=== PATIENT | male | born 1955 | race Caucasian/White ===

== ENCOUNTER 2017-12-11 21:49 | Observation (INO) | payer OTHER ==
[2017-12-11 22:23] LABS: Basophils % (A) 0 %; Eosinophils # (A) 0.2 k/uL (0-0.7); Eosinophils % (A) 1 %; HCT 46.1 % (39.0-53.0); HGB 15.3 gm/dL (13.0-17.5); Lymphocytes # (A) 2.5 k/uL (1.0-4.8); Lymphocytes % (A) 23 %; MCH 30.1 pg (25.0-35.0); MCHC 33.3 g/dL (31.0-37.0); MCV 90.3 fL (80.0-100.0); Mean Platelet Volume 7.2; Monocytes # (A) 1.2 k/uL (0-1.0); Monocytes % (A) 11 %; Neutrophils # (A) 6.7 k/uL (1.3-7.7); Neutrophils % (A) 63 %; Platelet Count 243 k/uL (150-450); RDW 13.1 % (11.5-15.5); WBC 10.7 k/uL (3.8-10.6)
--- NOTE | 2017-12-11 22:27 | XR ---
EXAMINATION TYPE: XR chest 2V DATE OF EXAM: 12/11/2017 COMPARISON: NONE HISTORY: Chest pain TECHNIQUE: Frontal and lateral views of the chest are obtained. FINDINGS: There is some linear density at the lung bases. There is no heart failure. Heart size is n ormal. There are chest leads. There is poor inspiration. Bony thorax is intact. IMPRESSION: Mild atelectasis at the lung bases. No heart failure.
[2017-12-11 22:34] LABS: ALT 43 U/L (21-72); AST 28 U/L (17-59); Albumin 4.2 g/dL (3.5-5.0); Alkaline Phosphatase 88 U/L (38-126); Anion Gap 12 mmol/L; Blood Urea Nitrogen 21 mg/dL (9-20); Calcium 9.8 mg/dL (8.4-10.2); Carbon Dioxide 23 mmol/L (22-30); Chloride 103 mmol/L (98-107); Glucose 154 mg/dL (74-99); Magnesium 1.8 mg/dL (1.6-2.3); Potassium 4.3 mmol/L (3.5-5.1); Sodium 138 mmol/L (137-145); Total Bilirubin 0.5 mg/dL (0.2-1.3); Total Protein 7.2 g/dL (6.3-8.2)
[2017-12-11 22:47] LABS: Creatine Kinase 118 U/L (55-170)
[2017-12-11 22:59] LABS: Creatine Kinase MB 0.2 ng/mL (0.0-2.4); Troponin I <0.012 ng/mL (0.000-0.034)
[2017-12-11] MEDS ORDERED: ASPIRIN 81 MG PO STA (23:05)
[2017-12-11 23:28] LABS: D-Dimer 0.2 mg/L FEU (<0.60); Partial Thromboplastin Time 24.1 sec (22.0-30.0); Prothrombin Time 9.6 sec (9.0-12.0)
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
[2017-12-12] MEDS ORDERED: NITROGLYCERIN OINT 1 INCH/GM PACKET TOPICAL STA (00:37)
[2017-12-12] MEDS ORDERED: NITROGLYCERIN SL TABS 0.4 MG TAB SUBLINGUAL PRN (00:40)
[2017-12-12] MEDS ORDERED: HEPARIN SODIUM,PORCINE 5,000 UNIT/ML 1 ML VIAL IV ONE (00:40)
[2017-12-12] MEDS ORDERED: ACETAMINOPHEN TAB 500 MG TAB PO PRN (00:42)
[2017-12-12] MEDS ORDERED: HEPARIN SOD,PORK IN 0.45% NACL 25,000 UNIT in 0.45% NACL 1 500ML.BAG IV SCH (00:45)
[2017-12-12] MEDS ORDERED: SODIUM CHLORIDE 0.9% 1,000 ML IV SCH (00:45)
[2017-12-12 04:24] LABS: Creatine Kinase 90 U/L (55-170)
[2017-12-12 04:36] LABS: Creatine Kinase MB <0.2 ng/mL (0.0-2.4); Troponin I <0.012 ng/mL (0.000-0.034)
[2017-12-12] MEDS: NITROGLYCERIN OINT 1 INCH/GM PACKET TOPICAL SCH ×3 (09:02→19:59)
[2017-12-12] MEDS: LISINOPRIL 20 MG TAB PO SCH ×2 (09:02→09:06)
[2017-12-12] MEDS: MULTIVITAMINS, THERA 1 EACH TAB PO SCH ×2 (09:03→09:05)
[2017-12-12] MEDS: PANTOPRAZOLE 40 MG TABLET PO SCH (09:03)
[2017-12-12 09:59] LABS: Creatine Kinase 84 U/L (55-170)
[2017-12-12 10:10] LABS: Creatine Kinase MB <0.2 ng/mL (0.0-2.4); Troponin I <0.012 ng/mL (0.000-0.034)
[2017-12-12] MEDS: HEPARIN SODIUM,PORCINE 5,000 UNIT/ML 1 ML VIAL IV PRN ×2 (11:05→17:45)
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
[2017-12-12] MEDS ORDERED: HEPARIN SODIUM,PORCINE 5,000 UNIT/ML 1 ML VIAL IV PRN (23:43)
[2017-12-13] MEDS: NITROGLYCERIN OINT 1 INCH/GM PACKET TOPICAL SCH ×3 (01:13→11:55)
[2017-12-13] MEDS ORDERED: AMINOPHYLLINE 500 MG/20 ML VIAL IV PRN (06:00)
[2017-12-13] MEDS ORDERED: REGADENOSON 0.4 MG/5 ML SYRINGE IV ONE (06:00)
[2017-12-13 06:26] VITALS: RESP 18
--- NOTE | 2017-12-13 08:47 | ECHOF ---
Referral Reason:Chest pain and cardiomyopathy MEASUREMENTS -------- HEIGHT: 170.2 cm WEIGHT: 94.8 kg BP: IVSd: 1.4 cm (0.6 - 1.1) LVIDd: 3.8 cm (3.9 - 5.3) LVPWd: 1.2 cm (0.6 - 1.1) IVSs: 1.9 cm LVIDs: 1.9 cm LVPWs: 1.6 cm Ao Diam: 3.4 cm (2.0 - 3.7) AV Cusp: 2.5 cm (1.5 - 2.6) LA Diam: 3.7 cm (2.7 - 3.8) MV EXCURSION: 14.924 mm (> 18.000) MV EF SLOPE: 164 mm/s (70 - 150) EPSS: 0.4 cm MV E Kolby: 0.76 m/s MV DecT: 205 ms MV A Kolby: 0.57 m/s MV E/A Ratio: 1.33 FINDINGS -------- Sinus rhythm. This was a technically good study. The left ventricular size is normal. There is mild concentric left ventricular hypertrophy. Overa ll left ventricular systolic function is normal with, an EF between 55 - 60 %. The right ventricle is normal in size and function. The left atrium is normal in size. The right atrium is normal in size. Aortic valve is trileaflet and is mildly thickened. The mitral valve leaflets are mildly thickened. There is trace mitral regurgitation. Trace tricuspid regurgitation present. The right ventricular systolic pressure, as measured by Dopp ler, is {RVSP}. Pulmonic valve appears structurally normal. The aortic root size is normal. The pericardium is normal. CONCLUSIONS -------- 1. Sinus rhythm. 2. This was a technically good study. 3. The left ventricular size is normal. 4. There is mild concentric left ventricular hypertrophy. 5. Overall left ventricular systolic function is normal with, an EF between 55 - 60 %. 6. The right ventricle is normal in size and function. 7. The left atrium is normal in size. 8. The right atrium is normal in size. 9. Aortic valve is trileaflet and is mildly thickened. 10. The mitral valve leaflets are mildly thickened. 11. There is trace mitral regurgitation. 12. Trace tricuspid regurgitation present. 13. The right ventricular systolic pressure, as measured by Doppler, is {RVSP}. 14. Pulmonic valve appears structurally normal. 15. The aortic root size is normal. 16. The pericardium is normal. ORDER SCHEDULE CLERK: Es Ro RDCS
[2017-12-13] MEDS ORDERED: ASPIRIN 325 MG TAB PO SCH ×2 (09:00→10:30)
[2017-12-13 09:21] LABS: Cholesterol 159 mg/dL (<200); HDL Cholesterol 42 mg/dL (40-60); LDL Cholesterol,Calculated 97 mg/dL (0-99); Triglycerides 102 mg/dL (<150)
[2017-12-13] MEDS: MULTIVITAMINS, THERA 1 EACH TAB PO SCH (10:29)
[2017-12-13] MEDS ORDERED: LISINOPRIL 20 MG TAB PO SCH (10:30)
--- NOTE | 2017-12-13 10:53 | P.STRESS ---
- Stress Test Note Stress Test Results/Findings: Exam Performed: NM stress lexiscan cardiolite Exam Date: 12/13/17 Reason for Exam: CHEST PAIN Height: 5 ft 7 in Weight: 94.801 kg Protocol: MARYLOU Stage: NA Duration of Exercise: NA Resting Heart Rate: 65 Resting Blood Pressure: 119/70 Maximum Achieved Heart Rate: 88 Maximum Achieved Blood Pressure: 119/70 85% PMHR: 133 100% PMHR: 156 METS: NA Technologist Comment: Stress Test Results/Findings: This is a 62-year-old gentleman was admitted to the hospital with chest pain and shortness of breath. Patient has history of hypertension and also some tobacco abuse.. Baseline EKG showed sinus rhythm with normal MN interval and QRS duration. Blood pressure at rest is 119/70. Pulse rate of 65. A standard dose of Lexiscan was infused. EKGs taken during and after the infusion did not reveal any changes to suggest ischemia. Final impression: #1. Negative Lexiscan stress test #2. Report on the nuclear images to be given by the radiologist
[2017-12-13 12:02] VITALS: BP 134/80; PULSE 72; TEMP 97.4
[2017-12-13] MEDS: PANTOPRAZOLE 40 MG TABLET PO SCH (13:03)
--- NOTE | 2017-12-13 14:04 | NM ---
EXAMINATION TYPE: NM stress lexiscan cardiolite DATE OF EXAM: 12/13/2017 COMPARISON: NONE HISTORY: Chest pain TECHNIQUE: After the intravenous administration of 10.2 mCi Tc 99m Sestamibi - Cardiolite resting SP ECT images acquired 50 minutes post injection. The patient received 0.4mg Lexiscan, 27.5 mCi Tc 99m Sestamibi - Stress images obtained [address] injection FINDINGS: No fixed or reversible perfusion defects are evident. Ejection fraction of 36% is low. Norm al greater than 50%. There is inferior septal dyskinesia near the cardiac apex. IMPRESSION: 1. No fixed or reversible perfusion defects are evident. 2. Dyskinesia of the inferior and septal myers near the cardiac apex. Some global hypokinesia may be present. 3. Ejection fraction is low at 36%.
--- NOTE | 2017-12-14 09:21 | EST ---
- Stress Test Note Stress Test Results/Findings: Exam Performed: NM stress lexiscan cardiolite Exam Date: 12/13/17 Reason for Exam: CHEST PAIN Height: 5 ft 7 in Weight: 94.801 kg Protocol: MARYLOU Stage: NA Duration of Exercise: NA Resting Heart Rate: 65 Resting Blood Pressure: 119/70 Maximum Achieved Heart Rate: 88 Maximum Achieved Blood Pressure: 119/70 85% PMHR: 133 100% PMHR: 156 METS: NA Technologist Comment: Stress Test Results/Findings: This is a 62-year-old gentleman was admitted to the hospital with chest pain and shortness of breath. Patient has history of hypertension and also some tobacco abuse.. Baseline EKG showed sinus rhythm with normal MA interval and QRS duration. Blood pressure at rest is 119/70. Pulse rate of 65. A standard dose of Lexiscan was infused. EKGs taken during and after the infusion did not reveal any changes to suggest ischemia. Final impression: #1. Negative Lexiscan stress test #2. Report on the nuclear images to be given by the radiologist BETTY
--- NOTE | 2017-12-19 19:18 | P.DS ---
Providers Date of admission: 12/12/17 00:40 Expected date of discharge: 12/13/17 Attending physician: Fidel Odonnell MD Consults: 12/12/17 00:40 Consult Physician Urgent Consulting Provider: Eduardo Guerrero Consult Reason/Comments: Unstable angina Do you want consulting provider notified?: Yes, Notify in am Primary care physician: Meri Penny Hospital Course: Discharge diagnosis Atypical chest pain. Possible unstable angina. Ruled out ACS Hypertension GERD Osteoarthritis Previous history of nuclear stress test 2 years ago Hospital course Patient is a 62-year-old male with a known history of hypertension, osteoarthritis and GERD came to ER with complaints of abdominal pain mainly in the upper abdomen like a bandlike sensation radiating to the right side of the chest. Chest pain is associated with shortness of breath. Pain started around 5 AM yesterday. Since then patient feels very weak and cannot be able to lie flat. Patient also could not able to walk to the bathroom without shortness of breath. Patient does have sweating and dizziness. He came to the hospital for further evaluation. Patient was started on heparin drip in the ER. Pain started really started to relieve after that. Patient is a tier lift truck operator. Patient had previous cardiac workup with positive stress test as per patient and lateral patient underwent nuclear stress test which was negative. Patient was seen by Dr. Rivero previously. EKG showed sinus rhythm with no ST-T wave changes Troponin 3 negative. d-dimer negative Chest x-ray showed no acute cardiopulmonary process On 12/13/2017 Patient denied any complaints of chest pain today. Patient underwent Lexiscan stress test.. No short of breath no nausea vomiting or abdominal pain. Patient was continued on heparin drip and discontinued was serial troponins are negative.. Telemetry monitoring and serial EKGs and troponins. Cardiology was consulted Cardiology recommends stress test. Final impression: #1. Negative Lexiscan stress test No fixed or reversible perfusion defects are evident. Dyskinesia of the inferior and septal wall near the cardiac apex. Some global hypokinesia represent.. . discussed the findings with cardiology and cardiology is aware of the findings and recommended to follow-up as an outpatient with Dr. Hicks in a week. otherwise patient is stable to be discharged home. PHYSICAL EXAMINATION: Patient is lying in the bed comfortably, no acute distress, awake alert and oriented.. HEENT: Normocephalic. Neck is supple. Pupils reactive. Nostrils clear. Oral cavity is moist. Ears reveal no drainage. Neck reveals no JVD, carotid bruits, or thyromegaly. CHEST EXAMINATION: Trachea is central. Symmetrical expansion. Lung martinez clear to auscultation and percussion. CARDIAC: Normal S1, S2 with no gallops. No murmurs ABDOMEN: Soft. Bowel sounds normal. No organomegaly. No abdominal bruits. Extremities: reveal no edema. No clubbing or cyanosis Neurologically awake, alert, oriented x3 with well-coordinated movements. No focal deficits noted Skin: No rash or skin lesions. Psychiatric: Coperative. Nonsuicidal Musculoskeletal: No joint swelling or deformity. Normal range of motion. Vital Signs 12/11/17 12/12/17 12/12/17 21:51 03:19 06:08 Temperature 98.2 F 97.5 F L Pulse Rate 85 62 73 Pulse Rate [ Right Pulse Oximetery] Respiratory 18 18 18 Rate Blood Pressure 144/70 113/65 129/66 Blood Pressure [Right Arm] O2 Sat by Pulse 96 97 95 Oximetry 12/12/17 12/12/17 12/12/17 08:51 09:00 11:00 Temperature Pulse Rate 68 80 76 Pulse Rate [ Right Pulse Oximetery] Respiratory 16 16 18 Rate Blood Pressure 97/61 110/73 112/69 Blood Pressure [Right Arm] O2 Sat by Pulse 93 L 100 Oximetry 12/12/17 12/12/17 12/12/17 14:00 14:48 15:10 Temperature 98.1 F 98.5 F Pulse Rate 82 70 Pulse Rate [ 81 Right Pulse Oximetery] Respiratory 18 18 18 Rate Blood Pressure 111/64 124/76 Blood Pressure 157/84 [Right Arm] O2 Sat by Pulse 94 L 95 94 L Oximetry 12/12/17 12/12/17 12/13/17 19:40 20:00 00:00 Temperature 98.8 F 98.1 F Pulse Rate Pulse Rate [ 81 70 63 Right Pulse Oximetery] Respiratory 16 16 18 Rate Blood Pressure Blood Pressure 129/73 118/63 [Right Arm] O2 Sat by Pulse 95 94 L Oximetry 12/13/17 12/13/17 12/13/17 01:17 04:00 08:00 Temperature 97.3 F L 97.8 F Pulse Rate Pulse Rate [ 66 66 62 Right Pulse Oximetery] Respiratory 16 18 18 Rate Blood Pressure Blood Pressure 118/63 110/68 [Right Arm] O2 Sat by Pulse 93 L 93 L Oximetry 12/13/17 12:00 Temperature 97.4 F L Pulse Rate Pulse Rate [ 72 Right Pulse Oximetery] Respiratory 18 Rate Blood Pressure Blood Pressure 134/80 [Right Arm] O2 Sat by Pulse 96 Oximetry Patient Condition at Discharge: Stable Plan - Discharge Summary Discharge Rx Participant: No New Discharge Prescriptions: Continue Lisinopril 40 mg PO DAILY Aspirin 81 mg PO ONCE PRN PRN Reason: Chest Pain Acetaminophen Tab [Tylenol] 1,000 mg PO ONCE PRN PRN Reason: Pain Omeprazole Magnesium [PriLOSEC OTC] 20 mg PO DAILY Multivitamins, Thera [Multivitamin (formulary)] 1 tab PO DAILY Naproxen 500 mg PO DAILY PRN PRN Reason: Pain Discharge Medication List Aspirin 81 mg PO ONCE PRN 02/19/16 [History] Lisinopril 40 mg PO DAILY 02/19/16 [History] Acetaminophen Tab [Tylenol] 1,000 mg PO ONCE PRN 12/11/17 [History] Multivitamins, Thera [Multivitamin (formulary)] 1 tab PO DAILY 12/11/17 [History ] Omeprazole Magnesium [PriLOSEC OTC] 20 mg PO DAILY 12/11/17 [History] Naproxen 500 mg PO DAILY PRN 12/12/17 [History] Follow up Appointment(s)/Referral(s): Meri Penny DO [Primary Care Provider] - 1-2 days Nikolai Rivera MD [STAFF PHYSICIAN] - 1 Week Patient Instructions/Handouts: Chest Pain (GEN) Discharge Disposition: HOME SELF-CARE
== END 2017-12-13 15:32 | disposition home or self-care (01) ==
LOC: EC 21:49 → 3OBS 12-12 00:40
PROVIDERS: ADMIT Internal Medicine; ATTEND Internal Medicine
DX: R07.89 Other chest pain (principal); R10.10 Upper abdominal pain, unspecified; I10 Essential (primary) hypertension; R06.02 Shortness of breath; R42 Dizziness and giddiness; R53.1 Weakness; K21.9 Gastro-esophageal reflux disease without esophagitis; E66.9 Obesity, unspecified; Z68.32 Body mass index [BMI] 32.0-32.9, adult; M19.90 Unspecified osteoarthritis, unspecified site; Z79.82 Long term (current) use of aspirin; Z79.899 Other long term (current) drug therapy; Z87.442 Personal history of urinary calculi; Z87.891 Personal history of nicotine dependence; Z83.3 Family history of diabetes mellitus; Z82.49 Family history of ischemic heart disease and other diseases of the circulatory system
CPT/HCPCS: 36415; 71046; 78452; 80053; 80061; 82550; 82553; 83735; 84484; 85025; 85379; 85610; 85730; 93005; 93017; 93306; 96365; 96366; 96376; 99291

== ENCOUNTER → 2018-01-03 | Outpatient (CLI) | payer OTHER ==
--- NOTE | 2018-01-03 10:01 | FL ---
EXAMINATION TYPE: FL UGI w esophagus DATE OF EXAM: 01/03/2018 CLINICAL INDICATION: 52-year-old male history of GE reflux disease, upper abdominal pain, and some co nstipation reported. 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 The swallowing mechanism is normal and hypopharyngeal anatomy is preserved. The cervical and thoracic portions have a normal course and caliber and normal motility. The mucosa is normal and no persistent filling defect is encountered. No hiatal hernia is present. There is minimal gastroesophageal reflux identified during Valsalva and turning maneuvers. There is [id number] diffuse fold thinning throughout the stomach and some scattered small round ed filling defects which may represent hyperplastic polyps. No additional suspicious filling defect i s identified. The duodenum shows a normal mucosal pattern. IMPRESSION: 1. Minimal gastroesophageal reflux during Valsalva and positional maneuvers. No hiatal hernia identif ied. 2. Gastric fold thickening and possible underlying hyperplastic polyps. Correlate for gastritis. Cons ider direct visualization if indicated.
--- NOTE | 2018-01-03 11:00 | US ---
EXAMINATION TYPE: US abdomen complete DATE OF EXAM: 01/03/2018 COMPARISON: CT 11/12/2012. CLINICAL HISTORY: 62-year-old male K21.9 GE Reflux. Technique: Multiple sonographic images of the abdomen are obtained. FINDINGS: Application Manager notes: Patient of large body habitus carry most of his weight in his abdomen. Extensive overlying bowel gas, technically difficult study. Liver Length: 17.6 cm Gallbladder Wall: 0.4 cm CBD: 0.4 cm Spleen: 9.2 cm Right Kidney: 13.8 x5.8 x 4.9 cm Left Kidney: 12.5 x 6.3 x 4.7 cm Pancreas: Obscured by bowel gas Liver: Of the limits of normal in size and diffusely heterogeneous and echogenic appearance. This se condary limits assessment for focal lesion. Gallbladder: No stones seen Evidence for sonographic Fuller's sign: no CBD: limited visualization, appears wnl as seen Spleen: limited visualization, appears wnl as seen Right Kidney: No hydronephrosis. There is a lower pole cyst with internal echoes measuring 6.3 x 6.6 x 7.1cm, previously measuring 6.3 cm on 11/12/2012. Left Kidney: No hydronephrosis . Upper IVC: Limited visualization Abd Aorta: portions visualized wnl, not visualized in its entirety IMPRESSION: 1. Borderline hepatomegaly (17.6 cm) with marked hepatic steatosis. Correlate with LFTs, lipid profil e, and patient risk factors. 2. Large 7.1 cm lower pole right renal cyst with some internal debris. Slightly larger from 2013 wher e it measured 6.3 cm. 3. Some technical limitations as above.
== END | disposition home or self-care (01) ==
LOC: RADUSMAIN 07:48
PROVIDERS: ATTEND Family Medicine
DX: K31.89 Other diseases of stomach and duodenum (principal); K76.0 Fatty (change of) liver, not elsewhere classified; N28.1 Cyst of kidney, acquired; K21.9 Gastro-esophageal reflux disease without esophagitis
CPT/HCPCS: 74240; 76700

== ENCOUNTER 2018-01-23 09:45 | Day surgery (SDC) | payer OTHER ==
[2018-01-18 15:01] VITALS: BMI 33.6
[~2018-01-23 09:45] MED LIST: LACTATED RINGERS 1,000 ML IV SCH; LIDOCAINE 1% 20 ML VIAL (10MG/ML) FOR IV START INTRADERMA PRN
[2018-01-23 10:56] VITALS: RESP 18; TEMP 98.6
[2018-01-23 11:03] LABS: Glucose,Whole Blood 121 mg/dL (75-99)
[2018-01-23] MEDS ORDERED: LIDOCAINE 1% INJ 10MG/ML (20 ML MDV) ONE (11:51)
[2018-01-23] MEDS ORDERED: fentaNYL (PF) 50 MCG/ML 2 ML AMP ONE (11:51)
[2018-01-23] MEDS ORDERED: PROPOFOL 10 MG/ML 20 ML VIAL IV ONE (11:51)
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
--- NOTE | 2018-01-23 12:02 | P.OP ---
Date of Procedure: 01/23/18 Preoperative Diagnosis: GERD Postoperative Diagnosis: Antral gastritis Procedure(s) Performed: EGD Anesthesia: MAC Surgeon: Yunior Vargas Pathology: other (Antrum) Condition: stable Disposition: PACU Description of Procedure: The patient's placed on the endoscopy table in the lateral position. He received IV sedation. The gastroscope placed oropharynx and passed into the esophagus into the stomach. Scope was then placed through the pylorus. The first and second portion of the duodenum appeared normal. Scope was then brought back the antrum this was Mildly inflamed and A biopsies performed. The scope was then retroflexed and there was no significant hiatal hernia. The distal esophagus appeared normal. The proximal esophagus. Normal. Scope was withdrawn for patient.
[2018-01-23 12:27] VITALS: BP 112/69; PULSE 73
== END 2018-01-23 12:42 | disposition home or self-care (01) ==
LOC: ORWHC2ENDO 09:45
PROVIDERS: ATTEND Surgery
DX: K31.9 Disease of stomach and duodenum, unspecified (principal); K29.70 Gastritis, unspecified, without bleeding; K21.9 Gastro-esophageal reflux disease without esophagitis; K83.9 Disease of biliary tract, unspecified; I10 Essential (primary) hypertension; E11.9 Type 2 diabetes mellitus without complications; M19.90 Unspecified osteoarthritis, unspecified site; Z87.442 Personal history of urinary calculi; Z90.49 Acquired absence of other specified parts of digestive tract; Z87.828 Personal history of other (healed) physical injury and trauma; Z87.891 Personal history of nicotine dependence; Z79.899 Other long term (current) drug therapy
CPT/HCPCS: 43239; J2001; J3010; J2704; 88305

== ENCOUNTER 2018-01-26 07:30 | Day surgery (SDC) | payer OTHER ==
[2018-01-18 15:17] VITALS: BMI 33.6
[~2018-01-26 07:30] MED LIST changes: +DEXAMETHASONE SOD PHOSPHATE 10 MG/ML 1 ML VIAL IV ONE; +HEPARIN SODIUM,PORCINE 5,000 UNIT/ML 1 ML VIAL SQ ONE; -LIDOCAINE 1% 20 ML VIAL (10MG/ML) FOR IV START INTRADERMA PRN; +MIDAZOLAM 2 MG/2 ML VIAL IV PRN; +ONDANSETRON ODT 4 MG TAB PO ONE; +SCOPOLAMINE 1.5MG/72HR PATCH TRANSDERM ONE; +ceFAZolin 2 GM in SODIUM CHLORIDE 0.9% 100 ML IVPB ONE; +ceFAZolin IN SWFI 2 GM/20 ML SYRINGE IVP ONE; +fentaNYL (PF) 50 MCG/ML 2 ML AMP IV PRN
[2018-01-26] MEDS ORDERED: LACTATED RINGERS 1,000 ML IV ONE ×2 (08:32→10:25)
[2018-01-26] MEDS ORDERED: ONDANSETRON 4 MG/2 ML VIAL IVP ONE ×2 (08:33→10:37)
[2018-01-26] MEDS ORDERED: LIDOCAINE 1% 20 ML VIAL (10MG/ML) FOR IV START INTRADERMA ONE (08:34)
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
[2018-01-26] MEDS ORDERED: KETOROLAC 30 MG/ML 1 ML VIAL ONE (09:14)
[2018-01-26] MEDS ORDERED: fentaNYL (PF) 50 MCG/ML 2 ML AMP ONE (09:14)
[2018-01-26] MEDS ORDERED: ROCURONIUM BROMIDE 10 MG/ML 10 ML VIAL IV ONE (09:14)
[2018-01-26] MEDS ORDERED: MIDAZOLAM 2 MG/2 ML VIAL ONE (09:14)
[2018-01-26] MEDS ORDERED: SUCCINYLCHOLINE CHLORIDE 100 MG/5 ML SYR IV ONE (09:14)
[2018-01-26] MEDS ORDERED: PROPOFOL 10 MG/ML 20 ML VIAL IV ONE (09:14)
[2018-01-26] MEDS ORDERED: BUPIVACAINE (PF) 0.25% 30 ML VIAL SQ ONE (09:36)
--- NOTE | 2018-01-26 10:09 | P.OP ---
Date of Procedure: 01/26/18 Preoperative Diagnosis: Cholecystitis Postoperative Diagnosis: Cholecystitis Procedure(s) Performed: Scopic cholecystectomy Anesthesia: GETA Pathology: other ([facility]) Condition: stable Disposition: PACU Description of Procedure: The patient was placed on the operating table. The patient received a general endotracheal tube anesthesia. The patients abdomen was prepped and draped in the usual sterile fashion. Through an infraumbilical stab incision, the fascia of the anterior abdominal wall was grasped with a pair of Kochers and then the Veress needle was placed in the peritoneal cavity. Position of the Veress needle was confirmed with positive drop test. The abdomen was then insufflated. After adequate insufflation, the 10 mm trocar was placed in the peritoneal cavity. Following this the laparoscope was placed in the peritoneal cavity. The patient was placed in the head-up, right side up position and then a 5 mm trocar was placed in the right lateral and right subcostal position under direct visualization. A 8 mm trocar was placed in the epigastric position. The gallbladder was grasped in the fundus and infundibulum. Traction on the gallbladder was placed in the lateral and the cephalad positions. The triangle of Calot was visualized.. The cystic duct was bluntly dissected until the union of the cystic duct and common bile duct was seen. The cystic duct was then divided and sealed with the Harmonic scissors. A PDS Endoloop was then placed throughout the cystic duct stump. The cystic artery divided and sealed with the Harmonic scissors. The gallbladder was then removed from the liver bed using Harmonic scissors. The gallbladder was then extracted through the epigastric port site. Operative field was checked for any bleeding spots and Harmonic scissors was used to coagulate the liver bed. The abdomen was irrigated. The trocars were removed. The skin was closed using interrupted 3-0 Vicryl suture. Dermabond dressing were applied. The patient tolerated the procedure well.
[2018-01-26 10:23] VITALS: TEMP 98.8
[2018-01-26] MEDS ORDERED: METOCLOPRAMIDE 5 MG/ML 2 ML VIAL IVP ONE (10:42)
[2018-01-26] MEDS ORDERED: PROMETHAZINE INJ 25 MG/ML 1 ML VIAL IVPB ONE (10:49)
[2018-01-26] MEDS ORDERED: HYDROcodone/APAP 7.5-325MG 1 EACH TAB PO ONE (11:50)
[2018-01-26 12:00] VITALS: RESP 18
[2018-01-26 12:20] VITALS: BP 131/64; PULSE 76
== END 2018-01-26 12:48 | disposition home or self-care (01) ==
LOC: OR 07:30
PROVIDERS: ATTEND Surgery
DX: K81.1 Chronic cholecystitis (principal); K21.9 Gastro-esophageal reflux disease without esophagitis; I10 Essential (primary) hypertension; M19.90 Unspecified osteoarthritis, unspecified site; N28.9 Disorder of kidney and ureter, unspecified; Z87.442 Personal history of urinary calculi; Z90.49 Acquired absence of other specified parts of digestive tract; Z87.891 Personal history of nicotine dependence; Z79.82 Long term (current) use of aspirin; Z79.899 Other long term (current) drug therapy
CPT/HCPCS: 88304; 47562; J2250; J1644; J1100; J2550; J2765; J2405; J3010; J1885; J0330; J2704; J0690

== ENCOUNTER 2019-01-31 07:51 | Emergency (ER) | payer MEDICARE, OTHER ==
[2019-01-31 08:04] VITALS: RESP 18; TEMP 98.3
[2019-01-31] MEDS ORDERED: SODIUM CHLORIDE 0.9% 1,000 ML IV STA (08:09)
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
[2019-01-31 09:20] LABS: Basophils # (A) 0.1 k/uL (0-0.2); Basophils % (A) 1 %; Eosinophils # (A) 0.1 k/uL (0-0.7); Eosinophils % (A) 1 %; HCT 44.4 % (39.0-53.0); Lymphocytes % (A) 29 %; MCH 31.5 pg (25.0-35.0); MCHC 33.8 g/dL (31.0-37.0); MCV 93.3 fL (80.0-100.0); Mean Platelet Volume 6.4; Monocytes # (A) 0.6 k/uL (0-1.0); Monocytes % (A) 8 %; Neutrophils # (A) 4.2 k/uL (1.3-7.7); Neutrophils % (A) 59 %; Platelet Count 238 k/uL (150-450); RBC 4.76 m/uL (4.30-5.90); RDW 12.7 % (11.5-15.5); WBC 7.1 k/uL (3.8-10.6)
[2019-01-31 09:21] LABS: INR 0.9 (<1.2); Partial Thromboplastin Time 24.3 sec (22.0-30.0); Prothrombin Time 9.7 sec (9.0-12.0)
[2019-01-31 09:23] LABS: ALT 31 U/L (21-72); AST 22 U/L (17-59); Albumin 4.5 g/dL (3.5-5.0); Alkaline Phosphatase 61 U/L (38-126); Anion Gap 8 mmol/L; Blood Urea Nitrogen 28 mg/dL (9-20); Calcium 9.7 mg/dL (8.4-10.2); Carbon Dioxide 25 mmol/L (22-30); Chloride 107 mmol/L (98-107); Glucose 100 mg/dL (74-99); Potassium 4.7 mmol/L (3.5-5.1); Sodium 140 mmol/L (137-145); Total Bilirubin 0.4 mg/dL (0.2-1.3); Total Protein 7.2 g/dL (6.3-8.2)
--- NOTE | 2019-01-31 10:15 | XR ---
EXAMINATION TYPE: XR chest 2V DATE OF EXAM: 01/31/2019 COMPARISON: 12/11/2017 INDICATION: Chest pain TECHNIQUE: Frontal and lateral views of the chest are obtained. FINDINGS: The heart size is normal. The pulmonary vasculature is normal. The lungs are clear. IMPRESSION: 1. No acute pulmonary process.
[2019-01-31 10:29] VITALS: BP 126/86; PULSE 64
== END 2019-01-31 11:16 | disposition home or self-care (01) ==
LOC: EC 07:51
DX: R55 Syncope and collapse (principal); E86.0 Dehydration; I10 Essential (primary) hypertension; K21.9 Gastro-esophageal reflux disease without esophagitis; Z87.891 Personal history of nicotine dependence; Z79.84 Long term (current) use of oral hypoglycemic drugs; Z79.899 Other long term (current) drug therapy
CPT/HCPCS: 36415; 71046; 80053; 83735; 84484; 85025; 85610; 85730; 96360; 99284

== ENCOUNTER → 2019-04-16 | Outpatient (CLI) | payer MEDICARE ==
[~2019-04-16] MED LIST changes: -DEXAMETHASONE SOD PHOSPHATE 10 MG/ML 1 ML VIAL IV ONE; -HEPARIN SODIUM,PORCINE 5,000 UNIT/ML 1 ML VIAL SQ ONE; +IODINE/POTASS IOD (LUGOLS) 8 ML BTL TOPICAL ONE; -LACTATED RINGERS 1,000 ML IV SCH; -MIDAZOLAM 2 MG/2 ML VIAL IV PRN; -ONDANSETRON ODT 4 MG TAB PO ONE; -SCOPOLAMINE 1.5MG/72HR PATCH TRANSDERM ONE; -ceFAZolin 2 GM in SODIUM CHLORIDE 0.9% 100 ML IVPB ONE; -ceFAZolin IN SWFI 2 GM/20 ML SYRINGE IVP ONE; -fentaNYL (PF) 50 MCG/ML 2 ML AMP IV PRN
--- NOTE | 2019-04-17 14:25 | NM ---
EXAMINATION TYPE: NM DatScan Brain SPECT DATE OF EXAM: 04/16/2019 COMPARISON: NONE HISTORY: Tremor per order. TECHNIQUE: 10 drops of Lugol's solution was administered 1 hour prior to injection as a thyroid bloc ela agent. After the administration of 4.52 mCi I-123 Ioflupane DaTscan. Images obtained 4.5 hours post injection. SPECT images of the brain were acquired with axial and coronal reconstructions. FINDINGS: The RIGO scan demonstrates reduced uptake of tracer throughout the striata bilaterally. This appearance is consistent with the bilateral loss of the presynaptic dopaminergic terminals. IMPRESSION: This abnormal appearance is consistent with the diagnosis of either idiopathic Parkinson' s disease or Parkinson's syndrome.
== END | disposition home or self-care (01) ==
LOC: RADNMMAIN 10:02
PROVIDERS: ATTEND Psychiatry & Neurology Neurology
DX: G25.0 Essential tremor (principal)
CPT/HCPCS: 78607; A9584

== ENCOUNTER → 2019-04-25 | Outpatient (CLI) | payer MEDICARE ==
--- NOTE | 2019-04-26 07:53 | US ---
EXAMINATION TYPE: US kidneys/renal and bladder DATE OF EXAM: 04/25/2019 COMPARISON: US 01/03/2018 and 11/12/2012 CLINICAL HISTORY: N28.1 cyst of kidney, acquired. Right kidney cyst EXAM MEASUREMENTS: Right Kidney: 11.9 x 6.2 x 5.6 cm Left Kidney: 11.5 x 5.9 x 5.8 cm Right Kidney: 6.9 x 6.9 x 6.7cm cyst inferior pole. This measured 6.3 x 6.6 x 7.1 cm on the exam of 01/03/2018 and 6.3 cm on the exam of 11/12/2012. The previously noted internal complexity does not persi st with only reverberation artifact seen anteriorly. Small additional 1.3 cm cortical cyst. Left Kidney: wnl Bladder: wnl Bilateral Jets seen: yes There is no evidence for hydronephrosis at this point in time. No nephrolithiasis is seen. The urin des bladder is anechoic. Bilateral ureteral jets are seen. Heterogenous hepatic echotexture most commonly related to hepatic steatosis is also partially visuali zed IMPRESSION: 1. Minimal increase in volume of the simple appearing right renal cyst in comparison to 01/03/2018. No internal complexity is seen and this appears benign. 2. Additional 1.3 cm simple appearing right renal cyst. 3. Incidentally noted hepatic heterogeneity, most commonly related to hepatic steatosis. Correlate liver function tests.
== END | disposition home or self-care (01) ==
LOC: RADUSWWP 15:49
PROVIDERS: ATTEND Family Medicine
DX: N28.1 Cyst of kidney, acquired (principal)
CPT/HCPCS: 76770

== ENCOUNTER → 2020-01-24 | Outpatient (CLI) | payer MEDICARE ==
--- NOTE | 2020-01-24 11:54 | ECHOS ---
STRESS ECHOCARDIOGRAM INDICATIONS: Chest pain. BASELINE HEART RATE: 70 BASELINE BLOOD PRESSURE: 126/79 MAXIMUM HEART RATE: 143 MAXIMUM BLOOD PRESSURE: 207/62 85% MPHR: 131 100% MPHR: 154 METS: 10.5 MAXIMUM STAGE REACHED: 3 TOTAL EXERCISE TIME: 9:00 CLINICAL INFORMATION: Baseline EKG shows sinus rhythm, normal axis, normal intervals. Patient exercised on Liang protocol for a total of 9 minutes achieving 10 METs, 85% of predicted maximal heart rate without chest pain or diagnostic ST segment depression. Baseline echo shows normal left ventricular size wall motion and systolic function. Postexercise there is normal hyperdynamic response of all segments of myocardium noted. CONCLUSION: 1. Good exercise tolerance. 2. Negative stress test by EKG criteria. 3. Negative stress echo. MMODL / IJN: [id number] /
== END | disposition home or self-care (01) ==
LOC: RADNMMAIN 08:43
PROVIDERS: ATTEND Family Medicine
DX: R07.89 Other chest pain (principal)
CPT/HCPCS: 93351

== ENCOUNTER 2021-01-07 18:57 | Inpatient (IN) | payer MEDICARE ==
[2021-01-07] MEDS ORDERED: SODIUM CHLORIDE 0.9% 1,000 ML IV STA (20:00)
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
[2021-01-07 20:38] LABS: Basophils # (A) 0.1 k/uL (0-0.2); Basophils % (A) 0 %; Eosinophils # (A) 0.3 k/uL (0-0.7); Eosinophils % (A) 2 %; HCT 43.5 % (39.0-53.0); HGB 14.4 gm/dL (13.0-17.5); Lymphocytes # (A) 1.9 k/uL (1.0-4.8); Lymphocytes % (A) 12 %; MCH 29.7 pg (25.0-35.0); MCV 89.8 fL (80.0-100.0); Mean Platelet Volume 6.7; Monocytes # (A) 0.9 k/uL (0-1.0); Monocytes % (A) 6 %; Neutrophils # (A) 12.6 k/uL (1.3-7.7); Neutrophils % (A) 80 %; Platelet Count 207 k/uL (150-450); RBC 4.84 m/uL (4.30-5.90); RDW 13.8 % (11.5-15.5); WBC 15.7 k/uL (3.8-10.6)
[2021-01-07 20:53] LABS: INR 0.9 (<1.2); Partial Thromboplastin Time 21.1 sec (22.0-30.0); Prothrombin Time 10.2 sec (9.0-12.0)
[2021-01-07 21:00] LABS: Potassium 5.2 mmol/L (3.5-5.1)
[2021-01-07 21:01] LABS: Albumin 4.2 g/dL (3.5-5.0); Calcium 9.9 mg/dL (8.4-10.2); Magnesium 1.7 mg/dL (1.6-2.3); Total Bilirubin 0.5 mg/dL (0.2-1.3); Total Protein 6.8 g/dL (6.3-8.2)
--- NOTE | 2021-01-07 21:42 | XR ---
EXAMINATION TYPE: XR chest 2V DATE OF EXAM: 01/07/2021 COMPARISON: 01/31/2019. HISTORY: Dizziness and hypertensive. TECHNIQUE: Frontal and lateral views of the chest are obtained. FINDINGS: There is mild perihilar and bibasilar hazy opacities. No pleural effusion, or pneumothorax seen. The cardiac silhouette size is within normal limits. The osseous structures are intact. IMPRESSION: Mild opacities may represent atelectasis versus developing infiltrates.
[2021-01-07 22:08] LABS: Appearance,Urine Cloudy (Clear); Bacteria,Urine Occasional /hpf; Bilirubin,Urine Negative (Negative); Blood,Urine Small (Negative); Calcium Oxalate Crystals,Urine Few /hpf; Color,Urine Yellow; Glucose,Urine (UA) Negative (Negative); Hyaline Casts,Urine 67 /lpf (0-2); Ketones,Urine Negative (Negative); Leukocyte Esterase,Urine Negative (Negative); Mucus,Urine Few /hpf; Nitrite,Urine Negative (Negative); PH, Urine 5.5 (5.0-8.0); Protein,Urine 1+ (Negative); RBC,Urine 5 /hpf (0-5); Specific Gravity,Urine 1.017 (1.001-1.035); Squamous Epithelial Cell,Urine 1 /hpf (0-4); Urobilinogen,Urine <2.0 mg/dL (<2.0); WBC,Urine 8 /hpf (0-5)
[2021-01-07] MEDS ORDERED: AZITHROMYCIN 500 MG in SODIUM CHLORIDE 0.9% 250 ML IVPB STA (22:43)
[2021-01-07] MEDS ORDERED: ASPIRIN 81 MG PO STA (22:43)
[2021-01-07] MEDS ORDERED: NALOXONE 0.4 MG/ML 1 ML VIAL IV PRN (22:44)
[2021-01-07] MEDS ORDERED: PRAMIPEXOLE 0.5 MG TAB PO STA (23:04)
[2021-01-07] MEDS: SODIUM CHLORIDE 0.9% 1,000 ML IV SCH (23:20)
[2021-01-08] MEDS: PRAMIPEXOLE 0.5 MG TAB PO SCH ×4 (06:59→22:26)
[2021-01-08] MEDS: LINAGLIPTIN 5 MG TABLET PO SCH (08:43)
[2021-01-08 08:47] LABS: Glucose,Whole Blood 122 mg/dL (75-99)
[2021-01-08] MEDS ORDERED: ASPIRIN 325 MG TAB PO SCH (09:00)
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
[2021-01-08 12:23] LABS: Magnesium 1.8 mg/dL (1.6-2.3); Potassium 4.3 mmol/L (3.5-5.1)
[2021-01-08 12:48] LABS: Glucose,Whole Blood 178 mg/dL (75-99)
[2021-01-08] MEDS: ENOXAPARIN 30 MG/0.3 ML SYRINGE SQ SCH (14:09)
[2021-01-08] MEDS: SODIUM CHLORIDE 0.9% 1,000 ML IV SCH (14:10)
[2021-01-08 16:58] LABS: Glucose,Whole Blood 172 mg/dL (75-99)
--- NOTE | 2021-01-08 18:03 | ECHOF ---
Referral Reason:shortness of breath, dizziness MEASUREMENTS -------- HEIGHT: 170.2 cm WEIGHT: 95.3 kg BP: RVIDd: 1.1 cm (< 3.3) IVSd: 0.9 cm (0.6 - 1.1) LVIDd: 3.9 cm (3.9 - 5.3) LVPWd: 1.1 cm (0.6 - 1.1) IVSs: 2.1 cm LVIDs: 2.1 cm LVPWs: 1.4 cm LAESV Index (A-L): 20.43 ml/m Ao Diam: 3.6 cm (2.0 - 3.7) AV Cusp: 2.3 cm (1.5 - 2.6) LA Diam: 3.7 cm (2.7 - 3.8) MV EXCURSION: 27.072 mm (> 18.000) MV EF SLOPE: 244 mm/s (70 - 150) EPSS: 0.5 cm MV E Kolby: 0.82 m/s MV DecT: 203 ms MV A Kolby: 0.58 m/s MV E/A Ratio: 1.43 RAP: 5.00 mmHg RVSP: 19.52 mmHg FINDINGS -------- This was a technically difficult study with suboptimal views. The left ventricular size is normal. Left ventricular wall thickness is normal. Overall left vent ricular systolic function is normal with, an EF between 55 - 60 %. The diastolic filling pattern is normal for the age of the patient 9.57. The right ventricle is normal in size. The left atrial size is normal. Normal LA size by volume 22+/-6 ml/m2. The right atrial size is normal. Lumason used The aortic valve is trileaflet and appears structurally normal. The mitral valve is normal. There is trace mitral regurgitation. The tricuspid valve appears structurally normal. Trace tricuspid regurgitation present. Right lake tricular systolic pressure is normal at < 35 mmHg. Trace/mild (physiologic) pulmonic regurgitation. The aortic root size is normal. IVC Not well visulized. There is no pericardial effusion. CONCLUSIONS -------- 1. The left ventricular size is normal. 2. Left ventricular wall thickness is normal. 3. Overall left ventricular systolic function is normal with, an EF between 55 - 60 %. 4. The diastolic filling pattern is normal for the age of the patient 9.57 5. There is trace mitral regurgitation. 6. Trace tricuspid regurgitation present. 7. Trace/mild (physiologic) pulmonic regurgitation. 8. There is no pericardial effusion. SPOILAGE WORKER: Es Ro RDCS
[2021-01-08 21:32] LABS: Glucose,Whole Blood 192 mg/dL (75-99)
[2021-01-08] MEDS: FAMOTIDINE 20 MG/2 ML VIAL IV SCH (22:26)
[2021-01-09] MEDS ORDERED: AZITHROMYCIN 500 MG in SODIUM CHLORIDE 0.9% 250 ML IVPB SCH ×2
[2021-01-09] MEDS: SODIUM CHLORIDE 0.9% 1,000 ML IV SCH (03:43)
[2021-01-09] MEDS: LINAGLIPTIN 5 MG TABLET PO SCH (08:08)
[2021-01-09] MEDS: PRAMIPEXOLE 0.5 MG TAB PO SCH (08:08)
[2021-01-09] MEDS: FAMOTIDINE 20 MG/2 ML VIAL IV SCH (08:08)
[2021-01-09] MEDS: ENOXAPARIN 30 MG/0.3 ML SYRINGE SQ SCH (08:08)
[2021-01-09 08:15] VITALS: RESP 18
[2021-01-09] MEDS ORDERED: ASPIRIN 81 MG PO SCH (09:00)
[2021-01-09 09:50] LABS: HCT 41.9 % (39.0-53.0); HGB 14.4 gm/dL (13.0-17.5); MCH 31.7 pg (25.0-35.0); MCHC 34.3 g/dL (31.0-37.0); MCV 92.3 fL (80.0-100.0); Mean Platelet Volume 7.5; Platelet Count 176 k/uL (150-450); RBC 4.54 m/uL (4.30-5.90); RDW 13.6 % (11.5-15.5); WBC 6.5 k/uL (3.8-10.6)
[2021-01-09 10:15] LABS: African American GFR (CKD) >90 (>60 ml/min/1.73 sqM); Anion Gap 11 mmol/L; Blood Urea Nitrogen 23 mg/dL (9-20); Calcium 8.9 mg/dL (8.4-10.2); Carbon Dioxide 20 mmol/L (22-30); Chloride 107 mmol/L (98-107); Glucose 225 mg/dL (74-99); Magnesium 1.8 mg/dL (1.6-2.3); Non-African American GFR(CKD) 90 (>60 ml/min/1.73 sqM); Potassium 4.5 mmol/L (3.5-5.1); Sodium 138 mmol/L (137-145)
[2021-01-09 12:09] LABS: Glucose,Whole Blood 102 mg/dL (75-99)
--- NOTE | 2021-01-09 12:18 | P.PN ---
Subjective Progress Note Date: 01/09/21 This is a pleasant 65-year-old male past medical history significant for hypertension, GERD, Type 2 Diabetes. He state he has been worked up for Parkinson's before (about 2 years ago), he was told he may have it by a provider and another provider told him he does not have Parkinsons. 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 He used to see Dr. Murphy but that was in 2014. We have been asked to see in consultation for elevated troponin and hypotension. Patient is seen and examined in the emergency department. Patient presents emergency department for evaluation of hypotension and dizziness. Patient was seen and examined this morning, blood pressure 140/70 lying, 120/76 standing. Echocardiogram with Doppler study revealed an ejection fraction of 55-60%. Sodium 138, potassium 4.5, BUN 23, creatinine 0.8. At the white blood cell count 6.5, hemoglobin 14.4, platelet count 176. Objective - Vital Signs Vital signs: Vital Signs Temp 98.7 F 01/09/21 07:50 Pulse 80 01/09/21 09:56 Resp 18 01/09/21 07:50 BP 150/89 01/09/21 09:56 Pulse Ox 95 01/09/21 07:50 Intake & Output 01/08/21 01/09/21 01/09/21 18:59 06:59 18:59 Intake Total 360 Output Total 1500 Balance -1500 360 Weight 95.254 kg 98 kg Intake: Oral 360 Output: Urine 1500 Other: Voiding Method Urinal Urinal # Voids 1 - Exam PHYSICAL EXAMINATION CONSTITUTIONAL: No apparent distress. HEENT: Head is normocephalic. Pupils are equal, round. Sclerae anicteric. Mucous membranes of the mouth are moist. No JVD. No carotid bruit. CHEST EXAMINATION: Lungs are clear to auscultation. No chest wall tenderness is noted on palpation or with deep breathing. HEART EXAMINATION: Regular rate and rhythm. S1, S2 heard. No murmurs, gallops or rub. ABDOMEN: Soft, nontender. Positive bowel sounds. EXTREMITIES: 2+ peripheral pulses, trace bilateral lower extremity edema and no calf tenderness. SKIN: intact NEUROLOGIC EXAMINATION: + bilateral arms, hand tremors. Patient is awake, alert and oriented x3. - Labs CBC & Chem 7: 01/09/21 09:31 01/09/21 08:26 Labs: Abnormal Lab Results - Last 24 Hours (Table) 01/08/21 01/08/21 01/08/21 Range/Units 11:13 12:47 16:56 Carbon Dioxide 21 L (22-30) mmol/L BUN 25 H (9-20) mg/dL Glucose 190 H (74-99) mg/dL POC Glucose (mg/dL) 178 H 172 H (75-99) mg/dL 01/08/21 01/09/21 01/09/21 Range/Units 21:30 08:26 12:06 Carbon Dioxide 20 L (22-30) mmol/L BUN 23 H (9-20) mg/dL Glucose 225 H (74-99) mg/dL POC Glucose (mg/dL) 192 H 102 H (75-99) mg/dL Microbiology - Last 24 Hours (Table) 01/07/21 20:20 Blood Culture - Preliminary Blood No Growth after 24 hours 01/07/21 20:15 Blood Culture - Preliminary Blood No Growth after 24 hours Assessment and Plan Plan: ASSESSMENT and plan #1 History of Hypertension- currently hypotensive #2 Acute Kidney Injury- currently being hydrated #3 Mildly elevate troponin- not indicative of acute coronary syndrome at this time #4 Hyperkalemia #5 Type 2 Diabetes #6 GERD Plan From cardiology's perspective, patient may be able to be discharged home today. We'll make him a follow-up appointment in the office post discharge. DNP note has been reviewed, I agree with a documented findings and plan of care. Patient was seen and examined.
[2021-01-09 12:51] VITALS: BP 125/78; PULSE 73; TEMP 98.6
--- NOTE | 2021-01-10 01:50 | P.DS ---
Providers Date of admission: 01/07/21 22:35 Attending physician: Ashley Chen Consults: 01/07/21 23:03 Consult Physician Routine Consulting Provider: [facility] Consult Reason/Comments: Elevated trop; Hypotension Do you want consulting provider notified?: Yes Primary care physician: Meri Newell Hospital Course: Diagnoses: Acute kidney injury . Resolved with hydration elevated troponin, cardiac causes were ruled out and patient is cleared by cane flume chute operator for discharge Hypotension, secondary to medication Mild leukocytosis, mostly reactive, came back to normal 6.5K. No evidence of in fection with no fever, patient is asymptomatic. Patient does not need antibiotics upon discharge History of hypertension History of GERD History of nephrolithiasis and hematuria chronic neck and back pain secondary to degenerative disc disease of the spine Hospital course: This is a pleasant 65 years old male with past medical history of hypertension, osteoarthritis, GERD, kidney stone and hematuria, chronic neck and back pain secondary to degenerative disc disease of the spine. He is a patient of Dr. Newell Presents because of dizziness and hypotension. He checked his blood pressure and he noticed it was on the low side at 71/45. He was taking lisinopril 40 mg daily at home. He was admitted to the hospital with hypotension and acute kidney injury, creatinine was 2.3 on admission. His lisinopril was held and he was started on normal saline 75 mL/h, his creatinine improved down to 1.0 and his dizziness significantly improved and today patient is back to baseline. Patient denies chest pain or dyspnea. Newswriter evaluated the patient, and recommended a stress test as an outpatient as patient is asymptomatic currently. Ejection fraction 55-60% Patient was treated with normal saline and his blood pressure improved to normal Blood pressure on discharge was 125/78 on sitting and 132/81 understanding with no evidence of orthostatic hypotension. Patient's was instructed to keep holding his lisinopril, keep monitoring his blood pressure and follow-up with his PCP within one week and he agrees to call and make appointment. This morning patient is back to his normal self. He was asymptomatic. Denies chest pain or dizziness or dyspnea. No fever. No GI or urinary symptoms. Patient wants to go home today Patient was cleared for discharge by cane flume chute operator Problems and management plan were discussed with the patient and he verbalized understanding and acceptance Patient was found stable and can be discharged home however he needs follow-up as an outpatient. Patient was instructed to follow up with PCP Dr. Newell within one week and patient agrees. Also patient was instructed to follow up outpatient with his cane flume chute operator Dr. Murphy in 1-2 weeks for stress test as an outpatient and he verbalized understanding and acceptance Physical exam Gen: patient is a AAOx3, no distress CVS: S1-S2, RRR, no murmur Lungs: B/L CTA, no wheezing Abdomen: soft, no distention, no tenderness, positive bowel sounds Extremity: no leg edema or induration Time spent more than 35 minutes Patient Condition at Discharge: Serious Plan - Discharge Summary Discharge Rx Participant: No New Discharge Prescriptions: Continue Acetaminophen Tab [Tylenol] 500 mg PO Q6HR PRN PRN Reason: Pain sitaGLIPtin [Januvia] 100 mg PO DAILY Omeprazole 20 mg PO DAILY Aspirin EC [Ecotrin Low Dose] 81 mg PO DAILY Pramipexole [Mirapex] 1.5 mg PO TID Discontinued lisinopriL [Zestril] 20 mg PO BID Discharge Medication List Acetaminophen Tab [Tylenol] 500 mg PO Q6HR PRN 01/31/19 [History] sitaGLIPtin [Januvia] 100 mg PO DAILY 01/31/19 [History] Aspirin EC [Ecotrin Low Dose] 81 mg PO DAILY 01/07/21 [History] Omeprazole 20 mg PO DAILY 01/07/21 [History] Pramipexole [Mirapex] 1.5 mg PO TID 01/07/21 [History] Follow up Appointment(s)/Referral(s): Meri Newell DO [Primary Care Provider] - 1-2 days (Call for an appointment on Monday please.) Carlos Murphy MD [STAFF PHYSICIAN] - 1 Week (Office staff will call you with an appointment. you will need stress test for your heart as an outpatient) Patient Instructions/Handouts: Syncope (DC) Activity/Diet/Wound Care/Special Instructions: heart healthy diet activity is restricted till you see your doctor we recommend to monitor your blood pressure with your doctor Discharge Disposition: HOME SELF-CARE
== END 2021-01-09 13:50 | disposition home or self-care (01) | DRG 684 ==
LOC: EC 18:57 → 3SCARD 22:35
PROVIDERS: ADMIT Hospitalist; ATTEND Hospitalist
DX: N17.9 Acute kidney failure, unspecified (principal); E11.9 Type 2 diabetes mellitus without complications; E87.5 Hyperkalemia; G20 Parkinson's disease; G89.29 Other chronic pain; I10 Essential (primary) hypertension; K21.9 Gastro-esophageal reflux disease without esophagitis; K59.00 Constipation, unspecified; Z20.822 Contact with and (suspected) exposure to COVID-19; M47.9 Spondylosis, unspecified; R77.8 Other specified abnormalities of plasma proteins; M50.30 Other cervical disc degeneration, unspecified cervical region; I95.2 Hypotension due to drugs; T46.4X5A Adverse effect of angiotensin-converting-enzyme inhibitors, initial encounter; Z98.890 Other specified postprocedural states; Z87.891 Personal history of nicotine dependence; Z83.3 Family history of diabetes mellitus; Z82.49 Family history of ischemic heart disease and other diseases of the circulatory system; Z79.82 Long term (current) use of aspirin; Z79.84 Long term (current) use of oral hypoglycemic drugs; Z79.899 Other long term (current) drug therapy; Z87.442 Personal history of urinary calculi; Z90.49 Acquired absence of other specified parts of digestive tract; Z84.1 Family history of disorders of kidney and ureter
CPT/HCPCS: 36415; 71046; 80048; 80053; 81001; 83735; 84484; 85025; 85027; 85610; 85730; 87040; 87635; 93005; 93306; 99285

== ENCOUNTER 2021-03-09 08:00 | Day surgery (SDC) | payer MEDICARE ==
[2021-03-08 09:47] VITALS: BMI 34.0
[~2021-03-09 08:00] MED LIST changes: -IODINE/POTASS IOD (LUGOLS) 8 ML BTL TOPICAL ONE; +LACTATED RINGERS 1,000 ML IV SCH; +LIDOCAINE 1% (10MG/ML) FOR IV START INTRADERMA PRN
[2021-03-09 08:39] VITALS: TEMP 97.8
[2021-03-09] MEDS ORDERED: LACTATED RINGERS 1,000 ML IV ONE (08:39)
[2021-03-09 08:50] LABS: Glucose,Whole Blood 147 mg/dL (75-99)
[2021-03-09] MEDS ORDERED: PROPOFOL 10 MG/ML 20 ML VIAL IV ONE (09:00)
--- NOTE | 2021-03-09 09:29 | P.PCN ---
Date of Procedure: 03/09/21 Description of Procedure: BRIEF HISTORY: Patient is a 65-year-old male presenting for outpatient colonoscopy for screening for malignant neoplasm colon. Last colonoscopy 10 years ago by his report. No change in bowel habits or abdominal pain. Patient reports chronic constipation baseline. No family history of colon cancer. PROCEDURE PERFORMED: Colonoscopy. PREOPERATIVE DIAGNOSIS: Screening for malignant neoplasm of the colon, patient reports last colonoscopy 10 years ago. ESTIMATED BLOOD LOSS: Minimal. IV sedation per Anesthesia. PROCEDURE: After informed consent was obtained, the patient, was brought into the endoscopy unit. IV sedation was administered by Anesthesia under continuous monitoring. Digital rectal examination was normal. Initially the Olympus CF-190 flexible video colonoscope was then inserted in the rectum, gradually advanced into the cecum without any difficulty. Careful examination was performed as the scope was gradually being withdrawn. Ileocecal valve and the appendiceal orifice were visualized and appeared normal. Prep was excellent. Mucosa of the cecum, ascending colon, transverse colon, descending colon, sigmoid colon, and rectum appeared normal, with a few scattered diverticula noted in the sigmoid colon. Retroflexion was performed in the rectum and no lesions were seen, and low-grade internal hemorrhoids were seen. The patient tolerated the procedure well. IMPRESSION: Mild sigmoid diverticulosis. Internal hemorrhoids. RECOMMENDATIONS: Findings of this examination were discussed with the patient .and his family. Okay to resume diet. Okay to resume medications. Extensive discussion with the patient regarding adequate water and dietary fiber intake, she can start a trial of [id number] nightly for constipation. Otherwise, recommendations for repeat colonoscopy in 10 years for screening for malignant neoplasm colon, or sooner if any signs or symptoms would warrant further evaluation develop.
[2021-03-09 09:31] VITALS: RESP 16
[2021-03-09 09:44] VITALS: BP 100/61; PULSE 65
== END 2021-03-09 11:08 | disposition home or self-care (01) ==
LOC: ORWHC2ENDO 08:00
PROVIDERS: ATTEND Internal Medicine
DX: Z12.11 Encounter for screening for malignant neoplasm of colon (principal); K57.30 Diverticulosis of large intestine without perforation or abscess without bleeding; K64.8 Other hemorrhoids; K59.09 Other constipation; I10 Essential (primary) hypertension; E11.9 Type 2 diabetes mellitus without complications; G20 Parkinson's disease; Z86.16 Personal history of COVID-19; G25.2 Other specified forms of tremor; K21.9 Gastro-esophageal reflux disease without esophagitis; Z87.11 Personal history of peptic ulcer disease; Z98.890 Other specified postprocedural states; Z90.49 Acquired absence of other specified parts of digestive tract; Z79.84 Long term (current) use of oral hypoglycemic drugs; Z79.899 Other long term (current) drug therapy
CPT/HCPCS: J2704; G0121